=== PATIENT | male | born 1955 | race American Indian/Alaskan Native ===

== ENCOUNTER 2024-01-07 11:36 | Emergency (ER) | payer OTHER, SELFPAY ==
[2024-01-07 11:51] VITALS: BP 123/70
--- NOTE | 2024-01-07 12:44 | ED.GENMED ---
History of Present Illness
General
Chief Complaint: Musculo-Skeletal Complaint
Source: patient
Exam Limitations: none
Time Seen by Provider: 01/07/24 12:31
Nursing documentation reviewed up to this point in time: agreed with
Travel History
Have you had any contact with someone who has COVID-19?: No
Do you have any symptoms of coronavirus? Fever > 100 degrees, chills, cough, shortness of breath, sore throat, loss of taste or smell, muscle aches, or headache?: No
History of Present Illness
History of Present Illness:
68 y/o M with h/o CAD, IDDM
no thinners
had mechanical trip and fall today while wlaking outside and hit his left hand/wrist and face on ground
no LOC
no vomiting, headache, confusion
nothing taken for pain
has some wounds (abrsainos) to left upper lip, left cheek and left hand
pain with movement of 5th finger
no deformity
denies recent tetanus shot
no dizziness pre fall
Past History
Past History
ED Past Medical History: CAD, HTN, Hypercholesterolemia and IDDM
ED Past Surgical History: Urological
Social History
Tobacco: Non-smoker
Review of Systems
Review of Systems
Allergies reviewed?: Yes
All Other Systems: Not applicable
Phy Exam
Physical Exam
Physical Exam:
GENERAL: Alert , in no apparent distress
HEAD: NCAT
face: small abrasion superficial left upper lip approx 0.5 cm
small round abrasion left cheek zyogma region without bony tendenress measruing 1 cm, superficial
jaw nontneder, full ROM, no trismus
NECK: no midline tenderness, active ROM intact, no paraspinal muscle tenderness;
EYE: pupils equal and reactive, EOMs intact.
ENT: upper lip abrasion, no intraoral injury
no dental injury
CARDIAC: Regular rate and rhythm, no edema
LUNGS: Clear breath sounds bilaterally, no acute respiratory distress, no wheezes/rales/rhonchi
NEUROLOGICAL: Alert and oriented, no focal neuro deficits, CN intact, 5/5 strength, sensation intact
SKIN: Warm and dry, abrasions
small lacerations superficial to left hand
MUSCULOSKELETAL: No edema, well perfused.
PSYCH: Normal and appropriate interaction.
Course
Orders/Labs/Results
Orders:
Orders
01/07/24 11:54
CR Wrist - Left Min 3 Views Urgent
Comment:
Reason For Exam: pain
Finger(s)/Thumb 2 View Lt [CR Finger(s)/thumb Min 2 Vw Lt] Urgent
Comment:
Reason For Exam: pain
Indicate Which Finger:: Little Finger
01/07/24 12:41
Tetanus/Diphth/Acelpertussis [Adacel] 0.5 ml IM .ONCE ONE
01/07/24 12:51
CR Hand - Left Min 3 Views Urgent
Comment:
Reason For Exam: left 5th metacarpal tendenrness, 3rd MCPJ swellign
Vital Signs
Initial and Last Documented VS:
Initial Vital Signs
Temp Pulse Resp BP Pulse Ox
98.2 F 73 18 123/70 98
01/07/24 11:51 01/07/24 11:51 01/07/24 11:51 01/07/24 11:51 01/07/24 11:51
Last Documented Vital Signs
Temp Pulse Resp BP Pulse Ox
98.2 F 73 18 123/70 98
01/07/24 11:51 01/07/24 11:51 01/07/24 11:51 01/07/24 11:51 01/07/24 11:51
MDM/Problems Addressed
Differential Diagnosis Includes:
hand fracture, dislcoation
MDM/Problems Addressed:
68 y/o M with mechanical fall left hand and face
no loc
no thinners
some abrasions to lef thand
most pain is left 5th MCP joint with some STS
eval on xrays ordered initially finger and wrist - but did not include all of hand, so pt sent back for hand films
i thought maybe there was a dislocation from 5th metacapral and hamate region and d/w radiologist who did not think this was acute
pt is tender there, will splint and send to ortho for f/u
tetanus updated
*Critical Care Note
Total Time (30-74mins, 75-104mins- exclusive of procedures): Not Applicable
ED Attending Note
-
Portions of this chart may have been created with voice recognition software.� Occasional wrong word or��sound alike� substitutions may have occurred due to the inherent limitations of voice recognition software.
Discharge Plan
Departure
Patient Disposition: Home (Routine Discharge)
Date of Disposition: 01/07/24
Time of Disposition: 14:04
Patient with high blood pressure during this ER visit?: No
Condition: Fair
Discharge Problem:
Contusion of hand, Fall, Abrasion
Instructions: Contusion (DC), Skin Abrasions (DC)
Referrals:
Brendan Chamberlain MD [Active] - Follow up in 2-3 days (HAND DOCTOR)
Activity Restrictions/Additional Instructions:
Your x-rays were read by the radiologist as negative for fracture. You look to have a slight widening of the space between your hand bone and your metacarpal so we are placing you in a splint and recommending that you follow-up with a hand doctor
before taking the splint off. Please call today for an appointment. You can tell them that you may have a hand fracture and you were seen in the emergency department. Take Tylenol every 6 hours for pain. You were given new tetanus shot today.
ice off-and-on
Do not get the splint wet.
Interventions
Interventions:
*Risk Screen - Suicide Last Done: 01/07/24 11:51
*General Assessment Last Done: 01/07/24 11:51
*Neglect/Abuse Screening Last Done: 01/07/24 11:51
*ED COVID-19 Vaccine History Last Done: 01/07/24 11:51
*Nursing Disposition Last Done: 01/07/24 14:33
ED-Musculoskeletal Assessment Last Done: 01/07/24 14:31
Discharge Date and Time
Discharge Date/Time: 01/07/24 14:34
Print Language: [id number]
[2024-01-07] MEDS: ADACEL 0.5 ML IM (14:02)
== END 2024-01-07 14:34 | disposition home or self-care (01) ==
LOC: EMR 11:36
PROVIDERS: EMERGENCY PHYSICIAN Emergency Medicine; FAMILY PHYSICIAN Internal Medicine
DX: S60.512A Abrasion of left hand, initial encounter (principal); S00.511A Abrasion of lip, initial encounter; W01.0XXA Fall on same level from slipping, tripping and stumbling without subsequent striking against object, initial encounter; Z23 Encounter for immunization; I25.10 Atherosclerotic heart disease of native coronary artery without angina pectoris; E11.9 Type 2 diabetes mellitus without complications; E78.00 Pure hypercholesterolemia, unspecified; I10 Essential (primary) hypertension
CPT/HCPCS: 99283; 90471; 73110; 73130; 73140; 90715